=== PATIENT | female | born 1995 | race American Indian/Alaskan Native ===

== ENCOUNTER 2020-06-03 20:27 | Outpatient (CLI) | payer MEDICAID ==
[2020-06-03 21:42] VITALS: BP 121/56
[2020-06-03 22:32] LABS: Mucus,Urine 3+ /HPF
[2020-06-03 22:33] LABS: Bilirubin,Urine NEG (Negative); Blood,Urine NEG (Negative); Color,Urine Yellow (Yellow); Urobilinogen,Urine < 2.0 mg/dL (<2.0)
== END 2020-06-03 23:07 | disposition left against medical advice (07) ==
LOC: TRG 20:27 → APU 20:59 → TRG 23:07
PROVIDERS: ATTEND Obstetrics & Gynecology
DX: O26.893 Other specified pregnancy related conditions, third trimester (principal); R10.2 Pelvic and perineal pain; Z3A.30 30 weeks gestation of pregnancy
CPT/HCPCS: 59025; 81001

== ENCOUNTER 2020-07-31 02:28 | Inpatient (IN) | payer MEDICAID ==
[2020-07-31] MEDS ORDERED: ePHEDrine SULFATE 50 MG/1 ML INJ IV PRN (02:55)
[2020-07-31] MEDS ORDERED: AMPICILLIN/NS 2 GM/100 ML 2 GM/100 ML BAG IV ONE (02:55)
[2020-07-31] MEDS ORDERED: BUTORPHANOL 2 MG/1 ML INJ IV PRN ×2 (02:55)
[2020-07-31] MEDS ORDERED: LIDOCAINE (2%) 20 MG/1 ML VIAL 20 ML MDV INFILTRATI ONE (02:55)
[2020-07-31] MEDS ORDERED: TERBUTALINE 1 MG/1 ML INJ SUB-Q PRN (02:55)
[2020-07-31] MEDS ORDERED: MINERAL OIL 30 ML ORAL LIQD PO PRN (02:55)
[2020-07-31] MEDS ORDERED: fentaNYL 100 MCG/2 ML INJ IV ONE (02:56)
[2020-07-31] MEDS ORDERED: LACTATED RINGERS 1,000 ML IV ONE (02:57)
[2020-07-31] MEDS ORDERED: OXYTOCIN DRIP 30 UNITS/500 ML BAG IV SCH (03:00)
[2020-07-31] MEDS ORDERED: LACTATED RINGERS 1,000 ML IV SCH (03:00)
[2020-07-31 03:19] LABS: Mean Corpuscular HGB Conc 34 % (30-34); Mean Corpuscular Volume 89 fl (79-97); Platelet Count 301 K/mm3 (140-440); Red Blood Count 3.95 M/mm3 (3.65-5.03); Red Cell Distribution Width 14.5 % (13.2-15.2)
[2020-07-31 03:19] LABS: Bilirubin,Urine NEG (Negative); Blood,Urine MOD (Negative); Color,Urine Yellow (Yellow); Mucus,Urine FEW /HPF; Protein,Urine <15 mg/dL mg/dL (Negative)
--- NOTE | 2020-07-31 03:19 | History and Physical Report ---
History of Present Illness Date of examination: 07/31/20 Date of admission: 07/31/20 Chief complaint: c/o uc x several hours History of present illness: 24 y/o AA female presented to [facility] ob triage @ 39.1 wks with c/o uc x several hours. She admitted to active FM and denied LOF or VB. Pt states she initiated her pnc at [facility] [place] location in her 1st trimester. She had an uneventful preg per pt. MED/SURG/SOCIAL hx is remarkable per pt. She reports a family hx of htn and stroke. Pt's records are unavailable. She was found to be in active labor and was admitted to L&D for delivery. GBS is unknown. 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, other (Treated per pt) Family/Genetic History: hypertension, stroke Social history: single, full code - Obstetrical History Expected Date of Delivery: 08/06/20 Actual Gestation: 39 Week(s) 1 Day(s) : 2 Para: 1 Hx # Term Pregnancies: 1 Number of Living Children: 1 Medications and Allergies Allergies Allergy/AdvReac Type Severity Reaction Status Date / Time No Known Allergies Allergy Verified 07/31/20 03:03 Active Meds: Active Medications Butorphanol Tartrate (Butorphanol 2 Mg/1 Ml Inj) 1 mg IV Q2H PRN PRN Reason: Pain, Moderate(4-6) LABOR PAIN Butorphanol Tartrate (Butorphanol 2 Mg/1 Ml Inj) 2 mg IV Q2H PRN PRN Reason: Pain , Severe (7-10) Ephedrine Sulfate (Ephedrine Sulfate 50 Mg/1 Ml Inj) 10 mg IV Q2M PRN PRN Reason: Hypotension Fentanyl (Fentanyl 100 Mcg/2 Ml Inj) 100 mcg IV ONCE ONE Stop: 07/31/20 02:57 Lactated Ringer's (Lactated Ringers) 1,000 mls @ 999 mls/hr IV BOLUS ONE Stop: 07/31/20 03:57 Oxytocin/Sodium Chloride (Pitocin/Ns 30 Unit/500ml) 30 units in 500 mls @ 2 mls/hr IV TITR LUPE; Protocol Lactated Ringer's (Lactated Ringers) 1,000 mls @ 125 mls/hr IV DIRECT LUPE Oxytocin/Sodium Chloride (Pitocin/Ns 30 Unit/500ml) 30 units in 500 mls @ 40 mls/hr IV TITR LUPE; Protocol Ampicillin Sodium (Ampicillin/Ns 2 Gm/100 Ml) 2 gm in 100 mls @ 100 mls/hr IV ONCE ONE; Protocol Stop: 07/31/20 03:54 Ampicillin Sodium (Ampicillin/Ns 1 Gm/50 Ml) 1 gm in 50 mls @ 100 mls/hr IV Q4H LUPE; Protocol Lidocaine (Lidocaine (2%) 20 Mg/1 Ml Vial 20 Ml Mdv) 20 ml INFILTRATI ONCE ONE Stop: 07/31/20 02:56 Mineral Oil (Mineral Oil 30 Ml Oral Liqd) 30 ml PO QHS PRN PRN Reason: Constipation Terbutaline Sulfate (Terbutaline 1 Mg/1 Ml Inj) 0.25 mg SUB-Q ONCE PRN PRN Reason: Hyperstimulation/Hypertonicity Review of Systems All systems: negative Eyes: deferred Ears, nose, mouth and throat: deferred Breasts: normal Genitourinary: normal appearance Rectal Exam: deferred - Vital Signs Vital signs: Vital Signs Pulse BP 95 H 110/59 07/31/20 02:43 07/31/20 02:43 Temp Pulse Resp BP Pulse Ox 98.1 F 103 H 22 110/59 100 07/31/20 02:58 07/31/20 02:58 07/31/20 02:58 07/31/20 02:43 07/31/20 02:58 - Physical Exam Breasts: Positive: normal Abdomen: Positive: normal appearance, soft, normal bowel sounds, other (gravid) Genitourinary (Female): Positive: normal external genitalia, normal perenium Vulva: both: normal Vagina: Positive: normal moisture Uterus: Positive: enlarged, normal contour, other (gravid) Adnexa: both: normal Anus/Rectum: Positive: normal perianal skin Extremities: Positive: normal - Obstetrical FHR: category 1 Uterine Contraction Monitor Mode: External Cervical Dilatation: 5 (per nurse) Cervical Effacement Percentage: 80 (per nurse) station: -2 Uterine Contraction Frequency (min): q2-3 Uterine Contraction Pattern: Regular Uterine Tone Measurement Phase: Resting Uterine Contraction Intensity: Moderate Results All other labs normal. Assessment and Plan A: IUP@ 39.1 wks GBS unknown P: Admit to L&D Continuous monitoring GBS prophylaxis Pain med/Epidural Obtain MR in am Anticipate
[2020-07-31 03:27] LABS: Amphetamine Screen,Urine Negative; Benzodiazepines Screen,Urine Negative; Cannabinoid Screen,Urine Negative; Cocaine Screen,Urine Negative; Methadone Screen,Urine Negative; Opiate Screen,Urine Negative
[2020-07-31] MEDS ORDERED: NALOXONE 2 MG/2 ML INJ IV PRN (04:16)
--- NOTE | 2020-07-31 04:16 | Anesthesia Consultation ---
Anesthesia Consult and Med Hx Date of service: 07/31/20 - Airway Anesthetic Teeth Evaluation: Good ROM Head & Neck: Adequate Mental/Hyoid Distance: Adequate Mallampati Class: Class II Intubation Access Assessment: Probably Good - Pulmonary Exam CTA: Yes - Cardiac Exam Cardiac Exam: RRR - Pre-Operative Health Status ASA Pre-Surgery Classification: ASA3 Proposed Anesthetic Plan: Epidural - Pulmonary Hx Asthma: No - Cardiovascular System Hx Hypertension: No - Central Nervous System Hx Seizures: No Hx Psychiatric Problems: No - Endocrine Hx Renal Disease: No Hx Hypothyroidism: No Hx Hyperthyroidism: No - Hematic Hx Anemia: No Hx Sickle Cell Disease: No - Other Systems Hx Obesity: Yes
--- NOTE | 2020-07-31 04:38 | Progress Note ---
Labor Epidural - Labor Epidural Start Time: 04:26 Stop Time: 04:30 Performed by:: CARMEN LIZAMA Procedure: Patient is requesting epidural for labor pain. H&P, and labs reviewed. Procedure explained, questions answered, consent obtained. Patient in sitting position with blood pressure cuff and pulse ox on and working. Timeout performed immediately before start of procedure. Sterile chlorahexadine 0.5% prep/drape. 5 mL 1% lidocaine skin wheal at L[3]-L[4]. 18-gauge Tuohy epidural needle advanced to [id number] with saline at 8 cm. Epidural dexmedetomidine [30] mcg administered. Epidural catheter advanced to 13 cm, negative aspiration for blood and csf, negative test dose 3 ml 1.5% lidocaine with epinephrine. Sterile steri-strips and tegaderm applied, followed by tape reinforcement. Patient tolerated procedure well.
[2020-07-31] MEDS ORDERED: fentaNYL-BUPIV 2 MCG/ML-0.125% 200 MCG/100 ML BAG EPIDURAL SCH (05:00)
[2020-07-31] MEDS: AMPICILLIN/NS 1 GM/50 ML 1 GM/50 ML BAG IV SCH ×2 (06:53→11:14)
[2020-07-31] MEDS: ePHEDrine SULFATE 50 MG/1 ML INJ IV PRN ×3 (07:14→07:30)
[2020-07-31] MEDS: OXYTOCIN DRIP 30 UNITS/500 ML BAG IV SCH ×2 (07:52→14:06)
--- NOTE | 2020-07-31 09:08 | Progress Note ---
Subjective - Subjective Date of service: 07/31/20 Interval history: Category 1 tracing On oxytocin per protocol (4mu/min) [place]: Q2 Pt comfortable with epidural Continue current management Candace Varghese MD Objective - Vital Signs Vital Signs: Vital Signs - 12hr 07/31/20 07/31/20 07/31/20 02:43 02:48 02:53 Temperature Pulse Rate 95 H 89 97 H Respiratory Rate Blood Pressure 110/59 O2 Sat by Pulse 100 99 Oximetry 07/31/20 07/31/20 07/31/20 02:58 03:09 03:14 Temperature 98.1 F Pulse Rate 103 H 90 81 Respiratory 22 Rate Blood Pressure O2 Sat by Pulse 100 100 97 Oximetry 07/31/20 07/31/20 07/31/20 03:16 03:19 03:24 Temperature Pulse Rate 83 82 93 H Respiratory Rate Blood Pressure O2 Sat by Pulse 94 97 99 Oximetry 07/31/20 07/31/20 07/31/20 03:29 03:34 03:35 Temperature Pulse Rate 71 75 72 Respiratory Rate Blood Pressure 110/63 O2 Sat by Pulse 97 96 Oximetry 07/31/20 07/31/20 07/31/20 03:39 03:44 03:49 Temperature Pulse Rate 89 112 H 103 H Respiratory Rate Blood Pressure O2 Sat by Pulse 97 98 97 Oximetry 07/31/20 07/31/20 07/31/20 03:50 03:54 03:59 Temperature Pulse Rate 71 90 98 H Respiratory Rate Blood Pressure 117/70 O2 Sat by Pulse 99 100 Oximetry 07/31/20 07/31/20 07/31/20 04:04 04:07 04:09 Temperature Pulse Rate 87 73 77 Respiratory Rate Blood Pressure 138/71 O2 Sat by Pulse 98 99 Oximetry 07/31/20 07/31/20 07/31/20 04:14 04:19 04:21 Temperature Pulse Rate 85 76 82 Respiratory Rate Blood Pressure 126/68 O2 Sat by Pulse 98 99 Oximetry 07/31/20 07/31/20 07/31/20 04:22 04:24 04:29 Temperature Pulse Rate 77 105 H 65 Respiratory Rate Blood Pressure O2 Sat by Pulse 93 99 99 Oximetry 07/31/20 07/31/20 07/31/20 04:32 04:34 04:36 Temperature Pulse Rate 80 83 75 Respiratory Rate Blood Pressure 127/71 107/54 O2 Sat by Pulse 99 Oximetry 07/31/20 07/31/20 07/31/20 04:38 04:39 04:40 Temperature Pulse Rate 73 72 78 Respiratory Rate Blood Pressure 99/58 105/59 O2 Sat by Pulse 97 Oximetry 07/31/20 07/31/20 07/31/20 04:42 04:44 04:46 Temperature Pulse Rate 85 81 75 Respiratory Rate Blood Pressure 104/62 107/54 97/53 O2 Sat by Pulse 99 Oximetry 07/31/20 07/31/20 07/31/20 04:48 04:49 04:50 Temperature Pulse Rate 77 78 68 Respiratory Rate Blood Pressure 108/57 106/55 O2 Sat by Pulse 100 Oximetry 07/31/20 07/31/20 07/31/20 04:52 04:54 04:56 Temperature Pulse Rate 76 80 77 Respiratory Rate Blood Pressure 115/69 107/55 107/59 O2 Sat by Pulse 99 Oximetry 07/31/20 07/31/20 07/31/20 04:59 05:03 05:04 Temperature Pulse Rate 76 72 74 Respiratory Rate Blood Pressure 104/52 O2 Sat by Pulse 98 100 Oximetry 07/31/20 07/31/20 07/31/20 05:06 05:08 05:09 Temperature Pulse Rate 64 78 82 Respiratory Rate Blood Pressure 99/58 110/61 O2 Sat by Pulse 99 Oximetry 07/31/20 07/31/20 07/31/20 05:10 05:12 05:14 Temperature Pulse Rate 75 71 69 Respiratory Rate Blood Pressure 109/62 115/67 104/56 O2 Sat by Pulse 100 Oximetry 07/31/20 07/31/20 07/31/20 05:16 05:18 05:19 Temperature Pulse Rate 72 74 66 Respiratory Rate Blood Pressure 99/57 110/58 O2 Sat by Pulse 100 Oximetry 07/31/20 07/31/20 07/31/20 05:20 05:24 05:26 Temperature Pulse Rate 74 79 73 Respiratory Rate Blood Pressure 99/55 100/58 103/62 O2 Sat by Pulse 100 Oximetry 07/31/20 07/31/20 07/31/20 05:28 05:29 05:32 Temperature Pulse Rate 70 72 82 Respiratory Rate Blood Pressure 100/58 116/57 O2 Sat by Pulse 100 Oximetry 07/31/20 07/31/20 07/31/20 05:34 05:36 05:39 Temperature Pulse Rate 78 87 79 Respiratory Rate Blood Pressure 106/53 109/55 O2 Sat by Pulse 100 100 Oximetry 07/31/20 07/31/20 07/31/20 05:41 05:42 05:44 Temperature Pulse Rate 61 66 71 Respiratory Rate Blood Pressure 106/60 109/57 104/58 O2 Sat by Pulse 100 Oximetry 07/31/20 07/31/20 07/31/20 05:46 05:48 05:49 Temperature Pulse Rate 68 64 70 Respiratory Rate Blood Pressure 105/59 100/58 O2 Sat by Pulse 100 Oximetry 07/31/20 07/31/20 07/31/20 05:50 05:53 05:54 Temperature Pulse Rate 75 71 74 Respiratory Rate Blood Pressure 100/60 118/56 119/57 O2 Sat by Pulse 100 Oximetry 07/31/20 07/31/20 07/31/20 05:57 05:58 05:59 Temperature Pulse Rate 77 75 76 Respiratory Rate Blood Pressure 105/52 108/53 O2 Sat by Pulse 99 Oximetry 07/31/20 07/31/20 07/31/20 06:00 06:02 06:04 Temperature Pulse Rate 61 133 H 84 Respiratory Rate Blood Pressure 108/55 111/59 97/52 O2 Sat by Pulse 99 Oximetry 07/31/20 07/31/20 07/31/20 06:06 06:08 06:09 Temperature Pulse Rate 74 73 66 Respiratory Rate Blood Pressure 103/67 104/67 O2 Sat by Pulse 100 Oximetry 07/31/20 07/31/20 07/31/20 06:10 06:12 06:14 Temperature Pulse Rate 66 74 71 Respiratory Rate Blood Pressure 103/65 108/61 110/62 O2 Sat by Pulse 99 Oximetry 07/31/20 07/31/20 07/31/20 06:16 06:18 06:19 Temperature Pulse Rate 84 75 83 Respiratory Rate Blood Pressure 104/59 109/56 O2 Sat by Pulse 100 Oximetry 07/31/20 07/31/20 07/31/20 06:20 06:22 06:24 Temperature Pulse Rate 72 75 61 Respiratory Rate Blood Pressure 109/60 97/54 O2 Sat by Pulse 98 Oximetry 07/31/20 07/31/20 07/31/20 06:25 06:26 06:28 Temperature Pulse Rate 61 66 63 Respiratory Rate Blood Pressure 103/56 93/53 94/55 O2 Sat by Pulse Oximetry 07/31/20 07/31/20 07/31/20 06:29 06:30 06:32 Temperature Pulse Rate 77 71 82 Respiratory Rate Blood Pressure 95/53 101/59 O2 Sat by Pulse 97 Oximetry 07/31/20 07/31/20 07/31/20 06:34 06:39 06:43 Temperature Pulse Rate 88 69 64 Respiratory Rate Blood Pressure 95/51 O2 Sat by Pulse 93 100 Oximetry 07/31/20 07/31/20 07/31/20 06:44 06:47 06:49 Temperature Pulse Rate 72 65 96 H Respiratory Rate Blood Pressure 83/48 94/53 O2 Sat by Pulse 97 91 Oximetry 07/31/20 07/31/20 07/31/20 06:54 06:56 06:58 Temperature Pulse Rate 74 79 81 Respiratory Rate Blood Pressure 151/51 89/51 82/43 O2 Sat by Pulse 100 Oximetry 07/31/20 07/31/20 07/31/20 06:59 07:01 07:04 Temperature Pulse Rate 81 70 66 Respiratory Rate Blood Pressure 57/34 O2 Sat by Pulse 97 100 Oximetry 07/31/20 07/31/20 07/31/20 07:05 07:06 07:09 Temperature Pulse Rate 59 L 75 78 Respiratory Rate Blood Pressure 92/55 84/45 61/30 O2 Sat by Pulse 98 Oximetry 07/31/20 07/31/20 07/31/20 07:10 07:12 07:14 Temperature Pulse Rate 58 L 72 79 Respiratory Rate Blood Pressure 85/53 63/42 66/40 O2 Sat by Pulse 98 Oximetry 07/31/20 07/31/20 07/31/20 07:16 07:18 07:19 Temperature Pulse Rate 63 74 80 Respiratory Rate Blood Pressure 98/57 88/54 O2 Sat by Pulse 98 Oximetry 07/31/20 07/31/20 07/31/20 07:24 07:29 07:34 Temperature Pulse Rate 97 H 82 61 Respiratory Rate Blood Pressure 87/53 89/55 125/66 O2 Sat by Pulse 100 99 99 Oximetry 07/31/20 07/31/20 07/31/20 07:39 07:40 07:44 Temperature Pulse Rate 88 76 75 Respiratory Rate Blood Pressure 122/58 97/50 O2 Sat by Pulse 100 100 Oximetry 07/31/20 07/31/20 07/31/20 07:49 07:50 07:54 Temperature Pulse Rate 85 67 71 Respiratory Rate Blood Pressure 103/52 111/58 O2 Sat by Pulse 100 100 Oximetry 07/31/20 07/31/20 07/31/20 07:59 08:04 08:09 Temperature Pulse Rate 68 68 75 Respiratory Rate Blood Pressure 113/57 105/58 107/59 O2 Sat by Pulse 99 97 98 Oximetry 07/31/20 07/31/20 07/31/20 08:14 08:15 08:19 Temperature Pulse Rate 91 H 66 75 Respiratory Rate Blood Pressure 111/59 O2 Sat by Pulse 97 97 Oximetry 07/31/20 07/31/20 07/31/20 08:20 08:23 08:24 Temperature Pulse Rate 66 91 H 83 Respiratory Rate Blood Pressure 111/56 115/59 O2 Sat by Pulse 83 L 99 Oximetry 07/31/20 07/31/20 07/31/20 08:29 08:34 08:39 Temperature Pulse Rate 74 72 66 Respiratory Rate Blood Pressure O2 Sat by Pulse 100 98 96 Oximetry 07/31/20 07/31/20 07/31/20 08:42 08:44 08:49 Temperature Pulse Rate 67 77 73 Respiratory Rate Blood Pressure 110/56 O2 Sat by Pulse 97 100 Oximetry 07/31/20 07/31/20 07/31/20 08:54 08:56 08:59 Temperature Pulse Rate 77 85 74 Respiratory Rate Blood Pressure 99/56 O2 Sat by Pulse 100 96 Oximetry 07/31/20 09:04 Temperature Pulse Rate 71 Respiratory Rate Blood Pressure O2 Sat by Pulse 98 Oximetry - Labs Labs: Laboratory Results - last 24 hr 07/31/20 07/31/20 07/31/20 02:45 02:45 02:45 WBC 10.8 RBC 3.95 Hgb 12.0 Hct 35.0 MCV 89 MCH 30 MCHC 34 RDW 14.5 Plt Count 301 Urine Color Urine Turbidity Urine pH Ur Specific [place] Urine Protein Urine Glucose (UA) Urine Ketones Urine Blood Urine Nitrite Urine Bilirubin Urine Urobilinogen Ur Leukocyte Esterase Urine WBC (Auto) Urine RBC (Auto) U Epithel Cells (Auto) Urine Mucus Urine Opiates Screen Urine Methadone Screen Ur Barbiturates Screen Ur Phencyclidine Scrn Ur Amphetamines Screen U Benzodiazepines Scrn Urine Cocaine Screen U Marijuana (THC) Screen Drugs of Abuse Note Syphilis IgG Antibody Nonreactive Hep Bs Antigen Nonreactive HIV 1&2 Antibody Rapid Non react HIV P24 Antigen Non react Rubella IgG Antibody Immune Blood Type Antibody Screen 07/31/20 07/31/20 07/31/20 02:45 03:00 03:00 WBC RBC Hgb Hct MCV MCH MCHC RDW Plt Count Urine Color Yellow Urine Turbidity Clear Urine pH 7.0 Ur Specific [place] 1.019 Urine Protein <15 mg/dl Urine Glucose (UA) Neg Urine Ketones Neg Urine Blood Mod Urine Nitrite Neg Urine Bilirubin Neg Urine Urobilinogen 2.0 Ur Leukocyte Esterase Mod Urine WBC (Auto) 5.0 Urine RBC (Auto) 32.0 U Epithel Cells (Auto) 2.0 Urine Mucus Few Urine Opiates Screen Negative Urine Methadone Screen Negative Ur Barbiturates Screen Negative Ur Phencyclidine Scrn Negative Ur Amphetamines Screen Negative U Benzodiazepines Scrn Negative Urine Cocaine Screen Negative U Marijuana (THC) Screen Negative Drugs of Abuse Note Disclamer Syphilis IgG Antibody Hep Bs Antigen HIV 1&2 Antibody Rapid HIV P24 Antigen Rubella IgG Antibody Blood Type B POSITIVE Antibody Screen Negative
--- NOTE | 2020-07-31 10:48 | Event Note ---
Date: 07/31/20 Assumed care of patient. SMITAE 9.5/100/0. Called [facility] office and requested records.
[2020-07-31] MEDS ORDERED: miSOPROStol 200 MCG TAB ONE (13:26)
[2020-07-31] MEDS ORDERED: miSOPROStol 200 MCG TAB PR ONE (13:28)
[2020-07-31] MEDS ORDERED: HYDROcodone/ACETAMINOPHEN 5-325 MG TAB PO PRN (13:46)
[2020-07-31] MEDS ORDERED: MAGNESIUM HYDROXIDE (MOM) ORAL LIQD UDC PO PRN (13:46)
[2020-07-31] MEDS ORDERED: WITCH HAZEL/ GLYCERIN PAD TP PRN (13:46)
[2020-07-31] MEDS ORDERED: LANOLIN/ZINC/DIMETHICONE (LANSINOH) 7 GM TP PRN (13:46)
--- NOTE | 2020-07-31 13:53 | Procedure Note ---
OB Delivery Note - Delivery Date of Delivery: 07/31/20 Surgeon: CARISA DAVIS Estimated blood loss: other (250 cc) - Vaginal Delivery presentation: vertex Delivery position: OA Intrapartum events: none Delivery augmentation: rupture of membranes, pitocin Delivery monitor: external FHT, external uterine Route of delivery: Delivery placenta: spontaneous Delivery cord: 3 umbilical vessels Episiotomy: none Delivery laceration: none Anesthesia: epidural Delivery comments: Spontaneous vaginal delivery at 13:20 of liveborn male weighing 6 lb. 12 oz. over intact perineum with apgars 8/9. was atraumatic; no nuchal cord. Baby placed skin to skin with mom immediately after delivery. Spontaneous cry and respirations. Baby suctioned with bulb syringe and dried with warm blankets. 3 vessel cord double clamped and cut. Spontaneous delivery of intact placenta and membranes by hoffman mechanism. EBL 250 cc. Pitocin to IV fluids after delivery of placenta. Cytotec 800 mcg rectally due to uterine atony. Uterus firmed with massage. No lacerations noted. Vaginal sweep negative. Sponge count correct. Mother and baby stable.
[2020-07-31] MEDS: IBUPROFEN 600 MG TAB PO SCH ×2 (20:46→20:50)
[2020-08-01] MEDS: IBUPROFEN 600 MG TAB PO SCH ×3 (02:57→14:20)
[2020-08-01 06:06] LABS: Hematocrit 30.6 % (30.3-42.9); Hemoglobin 10.2 gm/dl (10.1-14.3)
--- NOTE | 2020-08-01 06:44 | Progress Note ---
Assessment and Plan A: day 1 S/P . Coronavirus positive (pt. is asymptomatic). P: Hemoglobin and hematocrit today. Coronavirus precautions. Anticipate discharge home tomorrow if patient continues to do well. Subjective - Subjective Date of service: 08/01/20 Principal diagnosis: day 1 S/P Interval history: Coronavirus test positive; patient denies chest pain, SOB, cough, headache, chills, fever, body aches, N/V, or any other symptoms. Patient reports: appetite normal, voiding normally, pain well controlled, flatus, ambulating normally, no dizzy ambulation, no nauseated [place]: doing well Objective - Vital Signs Latest vital signs: Vital Signs Temp Pulse Resp BP BP Pulse Ox 08/01/20 00:00 98.8 F 74 16 105/78 07/31/20 20:21 98.0 F 94 H 18 121/68 100 07/31/20 16:44 98.6 F 82 18 112/70 98 07/31/20 15:40 98.0 F 84 14 109/68 100 07/31/20 15:02 74 127/62 07/31/20 13:56 83 125/68 07/31/20 13:41 91 H 134/73 07/31/20 13:34 98 H 100 07/31/20 13:29 93 H 100 07/31/20 13:26 95 H 125/58 07/31/20 13:24 89 100 07/31/20 13:20 74 89 07/31/20 13:19 91 H 100 07/31/20 13:14 92 H 97 07/31/20 13:09 77 99 07/31/20 13:04 82 99 07/31/20 12:59 85 100 07/31/20 12:57 86 117/57 07/31/20 12:54 73 100 07/31/20 12:49 74 99 07/31/20 12:44 69 100 07/31/20 12:41 77 121/67 07/31/20 12:39 72 100 07/31/20 12:34 77 99 07/31/20 12:29 76 99 07/31/20 12:27 70 118/61 07/31/20 12:24 70 100 07/31/20 12:19 75 100 07/31/20 12:14 79 100 07/31/20 12:12 73 116/74 07/31/20 12:09 77 100 07/31/20 12:04 85 100 07/31/20 12:00 98.3 F 18 07/31/20 11:59 82 99 07/31/20 11:57 82 89/44 07/31/20 11:54 88 100 07/31/20 11:49 75 100 07/31/20 11:44 82 100 07/31/20 11:42 90 112/67 07/31/20 11:39 88 100 07/31/20 11:34 79 100 07/31/20 11:29 78 99 07/31/20 11:27 133 H 101/58 07/31/20 11:24 77 100 07/31/20 11:19 84 99 07/31/20 11:14 86 99 07/31/20 11:12 75 117/79 07/31/20 11:09 84 99 07/31/20 11:04 74 100 07/31/20 10:59 76 100 07/31/20 10:56 97 H 106/67 07/31/20 10:54 80 100 07/31/20 10:49 86 100 07/31/20 10:44 93 H 99 07/31/20 10:42 90 108/61 07/31/20 10:39 73 97 07/31/20 10:34 73 100 07/31/20 10:29 70 100 07/31/20 10:26 72 103/59 07/31/20 10:24 72 100 07/31/20 10:19 93 H 97 07/31/20 10:14 70 98 07/31/20 10:11 91 H 107/57 07/31/20 10:09 78 98 07/31/20 10:04 81 98 07/31/20 09:59 75 98 07/31/20 09:56 68 106/56 07/31/20 09:54 68 98 07/31/20 09:49 66 98 07/31/20 09:44 77 98 07/31/20 09:42 73 108/56 07/31/20 09:39 72 100 07/31/20 09:34 79 100 07/31/20 09:29 76 97 07/31/20 09:26 77 103/58 07/31/20 09:24 71 97 07/31/20 09:19 85 100 07/31/20 09:14 74 98 07/31/20 09:12 68 105/57 07/31/20 09:09 69 98 07/31/20 09:04 71 98 07/31/20 08:59 74 96 07/31/20 08:56 85 99/56 07/31/20 08:54 77 100 07/31/20 08:49 73 100 07/31/20 08:44 77 97 07/31/20 08:42 67 110/56 07/31/20 08:39 66 96 07/31/20 08:34 72 98 07/31/20 08:29 74 100 07/31/20 08:24 83 115/59 99 07/31/20 08:23 91 H 83 L 07/31/20 08:20 66 111/56 07/31/20 08:19 75 97 07/31/20 08:15 66 111/59 07/31/20 08:14 91 H 97 07/31/20 08:09 75 107/59 98 07/31/20 08:04 68 105/58 97 07/31/20 07:59 68 113/57 99 07/31/20 07:54 71 111/58 100 07/31/20 07:50 67 103/52 07/31/20 07:49 85 100 07/31/20 07:44 75 97/50 100 07/31/20 07:40 76 122/58 07/31/20 07:39 88 100 07/31/20 07:34 61 125/66 99 07/31/20 07:29 82 89/55 99 07/31/20 07:24 97 H 87/53 100 07/31/20 07:19 80 98 07/31/20 07:18 74 88/54 07/31/20 07:16 63 98/57 07/31/20 07:14 79 66/40 98 07/31/20 07:12 72 63/42 07/31/20 07:10 58 L 85/53 07/31/20 07:09 78 61/30 98 07/31/20 07:06 75 84/45 07/31/20 07:05 59 L 92/55 07/31/20 07:04 66 100 07/31/20 07:01 70 57/34 07/31/20 06:59 81 97 07/31/20 06:58 81 82/43 07/31/20 06:56 79 89/51 07/31/20 06:54 74 151/51 100 07/31/20 06:49 96 H 91 07/31/20 06:47 65 94/53 07/31/20 06:44 72 83/48 97 07/31/20 06:43 64 95/51 Intake and Output 07/31/20 07/31/20 08/01/20 15:59 23:59 07:59 Intake Total 26.233 500 Output Total 650 150 Balance -623.767 350 Intake: IV 26.233 PITOCin/NS 30 UNIT/500ML 26.233 30 units In 500 ml @ 2 mls/hr IV TITR LUPE Rx#: [id number] Oral 200 Intake, Free Water 300 Output: Urine 650 150 Indwelling Catheter 650 Void 150 Other: Total, Intake Amount 200 Total, Output Amount 650 150 # Voids Void 1 1 Estimated Blood Loss 250 - Exam Cardiovascular: Present: Regular rate, No murmurs Lungs: Present: Clear to auscultation Abdomen: Present: normal appearance, soft. Absent: distention, tenderness, guarding, rigidity Uterus: Present: normal, firm, fundal height below umbilicus. Absent: bogginess, tenderness Extremities: Present: normal. Absent: tenderness, edema - Labs Labs: Abnormal lab results 07/31/20 Range/Units Unknown Coronavirus (PCR) Positive A (Negative)
[2020-08-01] MEDS: FERROUS SULFATE 325 MG TAB PO SCH (14:00)
[2020-08-01] MEDS: PRENATAL VIT27-FE FUMARATE-FOLIC ACID VIT TAB PO SCH (14:10)
--- NOTE | 2020-08-01 15:26 | Post Anesthesia Evaluation ---
- Post Anesthesia Evaluation Patient Participated: Yes Airway Patent: Yes Stable Respiratory Function: Yes Nausea/Vomiting: No Temp > 96.8F: Yes Pain Manageable: Yes Adequeate Hydration: Yes Anesthesia Complications: No Block Receding Appropriately: Yes
[2020-08-02] MEDS: IBUPROFEN 600 MG TAB PO SCH ×2 (00:59→07:16)
[2020-08-02] MEDS: FERROUS SULFATE 325 MG TAB PO SCH ×2 (00:59→10:46)
--- NOTE | 2020-08-02 09:22 | Progress Note ---
Assessment and Plan A: day 2 S/P . Coronavirus positive (asymptomatic). Anemia. P: Discharge patient home today. Discussed with patient discharge instructions and warning signs. Advised pt. to quarantine at home for 2 weeks due to coronavirus positive. Advised patient to continue taking vitamin and iron supplement at home. Advised patient to avoid intercourse, lifting, and heavy housework. Advised patient to follow up at [facility] office in 6 weeks. Patient voiced understanding of all instructions. Subjective - Subjective Date of service: 08/02/20 Principal diagnosis: day 2 S/P Interval history: day 2 S/P . Doing well; no complaints. Patient reports: appetite normal, voiding normally, pain well controlled, flatus, ambulating normally, no dizzy ambulation, no nauseated : doing well Objective - Vital Signs Latest vital signs: Vital Signs Temp Pulse Resp BP Pulse Ox 08/02/20 02:04 97.7 F 66 20 115/54 99 Intake and Output 08/01/20 08/02/20 08/02/20 23:59 07:59 15:59 Intake Total 240 600 Balance 240 600 Intake: Intake, Free Water 240 600 Other: # Voids Indwelling Catheter 2 Void 1 1 - Exam Cardiovascular: Present: Regular rate, No murmurs Lungs: Present: Clear to auscultation Abdomen: Present: normal appearance, soft. Absent: distention, tenderness, guarding, rigidity Uterus: Present: normal, firm, fundal height below umbilicus. Absent: bogginess, tenderness Extremities: Present: normal. Absent: tenderness, edema
--- NOTE | 2020-08-02 09:34 | Discharge Summary ---
Providers - Providers Date of Admission: 07/31/20 02:55 Date of discharge: 08/02/20 Attending physician: NIKUNJ ECHEVERRIA JR, MD Primary care physician: NIKUNJ ECHEVERRIA JR, MD Hospitalization Reason for admission: active labor Delivery: Episiotomy: none Laceration: none Other procedures: none complications: other (coronavirus positive (asymptomatic)) Discharge diagnosis: IUP at term delivered baby: male Pertinent studies: Labs Hospital course: Normal hospital course Condition at discharge: Good Disposition: DC-01 TO HOME OR SELFCARE - Discharge Diagnoses (1) Term delivered Status: Acute Plan - Provider Discharge Summary Activity: routine, no sex for 6 weeks, no heavy lifting 4 weeks, no strenuous exercise Diet: routine Instructions: routine Additional instructions: Continue taking your vitamin and iron supplement at home. Self quarantine at home for 2 weeks due to coronavirus positive. Call your doctor immediately for: * Fever > 100.5 * Heavy vaginal bleeding ( >1 pad per hour) * Severe persistent headache * Shortness of breath * Reddened, hot, painful area to leg or breast - Follow up plan Follow up: NIKUNJ ECHEVERRIA JR, MD [Primary Care Provider] - 6 Weeks
[2020-08-02] MEDS: PRENATAL VIT27-FE FUMARATE-FOLIC ACID VIT TAB PO SCH (10:46)
[2020-08-02 17:48] VITALS: BP 138/55
== END 2020-08-02 16:13 | disposition home or self-care (01) | DRG 774 ==
LOC: TRG 02:28 → APU 02:29 → TRG 02:55 → LD 02:55 → OB 15:19
PROVIDERS: ADMIT Obstetrics & Gynecology; ATTEND Obstetrics & Gynecology
PROC: 10E0XZZ Delivery of Products of Conception, External Approach (ICD-10-PCS; principal; 2020-07-31)
PROC: 3E0R3BZ Introduction of Anesthetic Agent into Spinal Canal, Percutaneous Approach (ICD-10-PCS; 2020-07-31)
PROC: 00HU33Z Insertion of Infusion Device into Spinal Canal, Percutaneous Approach (ICD-10-PCS; 2020-07-31)
PROC: 3E033VJ Introduction of Other Hormone into Peripheral Vein, Percutaneous Approach (ICD-10-PCS; 2020-07-31)
DX: O98.53 Other viral diseases complicating the puerperium (principal); O99.214 Obesity complicating childbirth; E66.9 Obesity, unspecified; U07.1 COVID-19; O90.81 Anemia of the puerperium; D64.9 Anemia, unspecified; Z37.0 Single live birth; Z3A.39 39 weeks gestation of pregnancy
CPT/HCPCS: 36415; 80307; 81001; 85014; 85018; 85027; 86592; 86706; 86762; 86850; 86900; 86901; 87806; G0378; A6250; J0290; J2590; J3010; J7120; U0003